=== PATIENT | male | born 1975 | race Two or more races ===

== ENCOUNTER 2019-02-17 20:26 | Emergency (ER) | payer BC ==
[~2019-02-17] VITALS: Ht 175.3 cm; Wt 75.0 kg
--- NOTE | 2019-02-17 20:50 | NUR ---
Patient ambulated from [facility] to [facility]. Patient reports having left arm numbness and lightheadedness earlier today, but these symptoms have resolved. Patient ekg completed, assessed by provider, orders placed and patient ambulated steadily to bathroom.
[2019-02-17 21:05] LABS: BASOPHILS # (AUTO) 0.02 x10^3/uL (0-0.1); BASOPHILS % (AUTO) 0 % (0-1); EOSINOPHILS # (AUTO) 0.05 x10^3/uL (0-0.4); EOSINOPHILS % (AUTO) 1 % (1-7); LYMPHOCYTES # (AUTO) 1.36 x10^3/uL (1-3.4); LYMPHOCYTES % (AUTO) 19 % (22-44); MD NO; MEAN CORPUSCULAR HEMOGLOBIN 28.8 pg (27.5-34.5); MEAN CORPUSCULAR HGB CONC 33.3 g/dL (33.2-36.2); MEAN CORPUSCULAR VOLUME 86.6 fL (81-97); MONOCYTES # (AUTO) 0.67 x10^3/uL (0.2-0.8); MONOCYTES % (AUTO) 9 % (2-9); NEUTROPHILS # (AUTO) 5.21 x10^3/uL (1.8-6.8); NEUTROPHILS % (AUTO) 71 % (42-75); PLATELET COUNT 283 x10^3/uL (130-400); RED BLOOD COUNT 5.45 x10^6/uL (4.38-5.82); RED CELL DISTRIBUTION WIDTH 14.4 % (9.4-14.8)
[2019-02-17 21:14] LABS: ANION GAP 5 mmol/L (5-15); CALCIUM 9.4 mg/dL (8.5-10.1); CHLORIDE 108 mmol/L (98-107)
[2019-02-17 21:46] VITALS: BP 126/78
--- NOTE | 2019-02-17 21:47 | NUR ---
RN returned to bedside, attached to awake overnight monitor and educated on reasons. Patient verbalized understanding reports still remains symptom free at this time. New order placed for imaging. tire maintenance technician to bedside now. Awaiting CT and read.
[2019-02-17] MEDS ORDERED: ASPIRIN 325 MG TABLET EC PO ONE (22:00)
[2019-02-17] MEDS ORDERED: PLEASE ENTER ALLERGIES MC SCH (22:00)
[2019-02-17] MEDS ORDERED: OMNIPAQUE 350 MG/ML, 100ML BOTTLE ONE (22:52)
== END 2019-02-17 22:53 | disposition home or self-care (01) ==
LOC: ED 22:03
DX: R20.0 Anesthesia of skin (principal); G43.909 Migraine, unspecified, not intractable, without status migrainosus
CPT/HCPCS: 36415; 70450; 70496; 70498; 80048; 83735; 85025; 93005; 99284; Q9967